=== PATIENT | male | born 1975 | race Two or more races ===

== ENCOUNTER 2024-09-08 10:04 | Emergency (ER) | payer MEDICAID, OTHER ==
[~2024-09-08] VITALS: Ht 180.3 cm; Wt 93.0 kg
[2024-09-08] MEDS ORDERED: IBU600T PO (14:49)
[2024-09-08] MEDS ORDERED: LORA-1130 PO (14:49)
[2024-09-08] MEDS ORDERED: AMOX500T86 PO (14:49)
[2024-09-08 14:57] VITALS: BP 124/79; PULSE 58; RESP 17; TEMP 98.2; O2SAT 99
== END 2024-09-08 14:59 | disposition home or self-care (01) ==
LOC: ER 10:04
DX: R51.9 Headache, unspecified (principal); J01.10 Acute frontal sinusitis, unspecified
CPT/HCPCS: 70260